=== PATIENT | female | born 1995 | race Caucasian/White ===

== ENCOUNTER 2022-11-26 17:19 | Emergency (ER) | payer OTHER, SELFPAY ==
[2022-11-26 17:32] VITALS: BP 150/81; PULSE 114; RESP 36; TEMP 36; O2SAT 92; BMI 41.2
--- NOTE | 2022-11-26 17:53 | ED_ITS ---
HPI - SOB/Dyspnea General Chief Complaint: Shortness of Breath/Dyspnea Stated Complaint: Shortness of breath, cough Time Seen by Provider: 11/26/22 17:47 History of Present Illness HPI Narrative: This 27-year-old female comes in with shortness of breath. She has a history of asthma and states that she has been getting worsening shortness of breath over the past month. It has become worse yet over the past 2 or 3 days. She does take albuterol by inhaler and nebulizer and states that she has had about 10 treatments of albuterol today prior to arrival here. She does also take preventative medicines. She does not report any fever or respiratory infection symptoms. She arrives with increased pulse at 114 beats per minute, respiratory increased to 38 breaths per minute. She is maintaining 92% oximetry on room air with use of accessory muscles for breathing. Related Data Home Medications Medication Instructions Recorded Confirmed albuterol sulfate 2.5 mg/3 mL mg continuous nebulization 11/26/22 11/26/22 (0.083 %) solution for nebulization albuterol sulfate 90 mcg/actuation inhalation 11/26/22 11/26/22 aerosol inhaler ipratropium 0.5 mg-albuterol 3 mg ml inhalation 11/26/22 11/26/22 (2.5 mg base)/3 mL nebulization soln montelukast 10 mg tablet 10 mg PO DAILY 11/26/22 11/26/22 Previous Rx's Medication Instructions Recorded fluticasone 500 mcg-salmeterol 50 1 inh inhalation BID #60 ea 11/26/22 mcg/dose blistr powdr for inhalation (Advair Diskus) prednisone 20 mg tablet 10 - 60 mg (0.5 - 3 x 20 mg) PO 11/26/22 QDAY #26 tabs prednisone 20 mg tablet 20 mg PO DAILY #20 tabs 11/26/22 Allergies Allergy/AdvReac Type Severity Reaction Status Date / Time amoxicillin Allergy Unknown Hives Verified 11/26/22 17:38 Penicillins Allergy Unknown Hives Verified 11/26/22 17:38 Review of Systems Status of ROS: Reports: 10 or more systems reviewed and unremarkable except as noted in History and below Narrative: Constitutional: No fevers, no weight gain or loss. Eyes: No discharge. No vision changes. HENT: No congestion, no sore throat, no ear pain. Cardiovascular: No chest pain, no palpitations. Respiratory: Shortness of breath and wheezing. Gastrointestinal: No abdominal pain, no vomiting, no diarrhea. Genitourinary: No dysuria, no hematuria. Musculoskeletal: Normal range of motion. Skin: No rashes, no pruritis. Neurological: No dizziness, weakness, sensory change, speech change. Endo/Heme/Allergies: No bruising or bleeding. No polydipsia. Pysch: no suicidality, no anxiety, no insomnia. All other systems reviewed and are negative. [facility] Medical History (Updated 11/26/22 @ 19:26 by Earle Chambers MD) Moderate persistent asthma ?J45.40 - Moderate persistent asthma, uncomplicated (ICD-10) Exam Narrative: Exam Narrative: Constitutional: Well-developed, well-nourished, no acute distress. HEENT: Normocephalic, atraumatic. Neck: Normal range of motion. Nontender. Supple. Heart: Regular. No murmurs. Tachycardia. Intact distal pulses. Lungs: Bilateral inspiratory and expiratory wheezes and rhonchi. Use of accessory muscles for breathing. Increased respiratory rate. Abdomen: Normal bowel sounds. Nontender. No rebound tenderness. Genitalia: Deferred. Back: No midline tenderness. Normal range of motion. Extremities: Normal range of motion. No injury. Skin: Intact. No rash. Warm. No erythema or pallor. Neurologic: No altered sensation. No weakness. Alert and oriented. Psychiatric: No suicidality. No anxiety or depression. No insomnia. Nursing notes and vitals signs are reviewed. Const: Vital Signs, click to edit/add: Vital Signs - 24 hr 11/26/22 17:32 Temperature 96.8 F L Pulse Rate [Pulse Oximeter] 114 H Respiratory Rate 36 H Blood Pressure [Ri ght Upper Arm] 150/81 H Pulse Oximetry 92 Oxygen Delivery Me thod Room Air Course Vital Signs Vital signs: Initial Vital Signs Temperature 96.8 F L 11/26/22 17:32 Temperature Source Temporal Artery Scan 11/26/22 17:32 Pulse Rate 114 H 11/26/22 17:32 Pulse Rhythm Regular 11/26/22 17:32 Pulse Strength 3+ Normal 11/26/22 17:32 Respiratory Rate 36 H 11/26/22 17:32 Blood Pressure 150/81 H 11/26/22 17:32 Blood Pressure Mean 104 11/26/22 17:32 Blood Pressure Position Sitting 11/26/22 17:32 Pulse Oximetry 92 11/26/22 17:32 Oxygen Delivery Method Room Air 11/26/22 17:32 Vital Signs Temperature 96.8 F L 11/26/22 17:32 Pulse Rate 114 H 11/26/22 17:32 Respiratory Rate 36 H 11/26/22 17:32 Blood Pressure 150/81 H 11/26/22 17:32 Pulse Oximetry 92 11/26/22 17:32 Oxygen Delivery Method Room Air 11/26/22 17:32 Temperature 96.8 F L 11/26/22 17:32 Pulse Rate 114 H 11/26/22 17:32 Respiratory Rate 36 H 11/26/22 17:32 Blood Pressure 150/81 H 11/26/22 17:32 Pulse Oximetry 92 11/26/22 17:32 Oxygen Delivery Method Room Air 11/26/22 17:32 MDM - SOB/Dyspnea MDM Narrative Medical decision making narrative: This patient comes in with asthma flare up. She has increased respiratory rate and heart rate but is maintaining sufficient oximetry on room air. She has been using albuterol and I learned now that she just received a prescription for Advair and has only taken 1 dose today. Prior to this she was using albuterol only. Additionally she is a smoker. I stressed the other importance to quit smoking and the absolute need to be on a preventative medicine like Advair. The patient is improved with the treatments done here. Her heart rate is decreased and respiratory rate also has decreased. She is using much less effort for breathing. She still has some wheezes bilaterally. Her chest x-ray is negative for acute pulmonary disease. The patient did receive an oral dose of dexamethasone 10 mg here and that seems to be taking affect. She also received a DuoNeb. She is okay to be discharged home. I did provide a prescription for prednisone taper over 12 days using 20 mg tablets. Instructions also were given regarding proper use of inhaler. Lab Data Labs: Lab Results 11/26/22 Range/Units 17:48 SARS-CoV-2 (PCR) Negative SARS-CoV-2 (Negative) Influenza Type A (PCR) Negative PCR FLU A (Negative) Influenza Type B (PCR) Negative PCR FLU B (Negative) RSV (PCR) Negative PCR RSV (Negative) Imaging Data Chest x-ray: Radiologist's impression: No acute cardiopulmonary process identified. Discharge Plan Discharge Clinical Impression: Asthma with acute exacerbation Patient Disposition: Home w/ Parent or Adult Additional Instructions: Smoking cessation. Use Advair and albuterol as directed. Take prednisone 20 mg 3 times daily for 4 days, then 2 times daily for 4 days, and then 1 time daily for the remaining 4 days. Return if not improving or worsening. Prescriptions: New prednisone 20 mg tablet 20 mg PO DAILY Qty: 20 0RF Rx Instructions: Take 3 tablets daily for 4 days, then 2 tablets daily for 4 days, then 1 tablet daily. No Action albuterol sulfate 90 mcg/actuation HFA aerosol inhaler inhalation ipratropium-albuterol 0.5 mg-3 mg(2.5 mg base)/3 mL solution for nebulization inhalation Patient Comments: [NO ORIGINAL SIG] albuterol sulfate 2.5 mg /3 mL (0.083 %) solution for nebulization continuous nebulization Patient Comments: [NO ORIGINAL SIG] montelukast 10 mg tablet 10 mg PO DAILY prednisone 20 mg tablet 10 - 60 mg PO QDAY Qty: 26 0RF Rx Instructions: 3 QD x 4 days, 2 QD x 4 days, 1 QD x 4 days, 1/2 QD x 4 days fluticasone propion-salmeterol [Advair Diskus] 500-50 mcg/dose blister with device 1 inh inhalation BID Qty: 60 2RF Follow Up/Referrals: Evy Martinez MD [Staff Physician] - Stand Alone Forms: [employer] Info Instructions
--- NOTE | 2022-11-26 17:53 | CRLHL7_ITS ---
For Patients: As a result of the Cures Act, medical imaging exams and procedure reports are released immediately into your electronic medical record. You may view this report before your referring provider. If you have questions, please contact your health care provider. INDICATION: Chest pain. TECHNIQUE: Chest 1 views. COMPARISON: None. FINDINGS: Cardiovascular and mediastinum: Cardiomediastinal silhouette is within normal limits. Lungs and pleural spaces: Lungs are clear. No sign of pleural effusion. No pneumothorax. Bones and soft tissues: No significant findings. IMPRESSION: No acute cardiopulmonary process identified. Dictated by Amy Mleendez MD @ 11/26/2022 6:43:03 PM (Electronically Signed)
[2022-11-26] MEDS: dexAMETHasone 10 MG/ML inj PO (18:03)
[2022-11-26 18:36] LABS: PCR FLU A Negative PCR FLU A (Negative); PCR FLU B Negative PCR FLU B (Negative); PCR RSV Negative PCR RSV (Negative)
[2022-11-26 18:54] LABS: SARS PCR* Negative SARS-CoV-2 (Negative)
[2022-11-26 19:48] VITALS: BP 114/70; PULSE 109; RESP 28
== END 2022-11-26 19:38 | disposition home or self-care (01) ==
PROVIDERS: Emergency Provider Emergency Medicine Emergency Medical Services
DX: J45.901 Unspecified asthma with (acute) exacerbation (principal)
CPT/HCPCS: 71045; 87631; 94640; 99284; J1100